=== PATIENT | male | born 1990 | race Two or more races ===

== ENCOUNTER 2024-03-17 20:53 | Emergency (ER) | payer OTHER, SELFPAY ==
[2024-03-17 21:00] VITALS: BP 135/74; PULSE 89; RESP 20; TEMP 36.7; O2SAT 99; BMI 25.1
--- NOTE | 2024-03-17 21:20 | ED.GENADULT ---
HPI - General Adult General Date Seen: 03/17/24 Chief complaint: Urogenital Problems, Male Stated complaint: burning when urinating Time Seen by Provider: 03/17/24 20:54 History of Present Illness HPI narrative: 34-year-old male presenting to the ER this evening at 9:00 p.m. with concern for dysuria. He began to have dysuria yesterday. He is not having any fever. No penile discharge. No rashes or lesions on his genitals. He is concerned because his fiancee had chlamydia 3 months ago in November. Actually she describes an illness with severe abdominal pain requiring hospitalization and tooth. It sounds like she may have PID from chlamydia. She Rue describes being treated with IV antibiotics in the hospital and then a week-long course of oral antibiotics after discharge. The patient's fiancee denies any other sexual contacts since that treatment for PID in November. The patient has no other sexual contacts. He he is otherwise generally healthy. No diabetes or immunosuppression. Related Data Home Medications ?Medication ?Instructions ?Recorded ?Confirmed No Known Home Medications 03/17/24 03/17/24 Allergies Allergy/AdvReac Type Severity Reaction Status Date / Time No Known Drug Allergies Allergy Verified 03/17/24 21:07 [facility] Medical History (Updated 03/17/24 @ 21:41 by José Silva MD) No significant past medical history Surgical History (Updated 03/17/24 @ 21:29 by Melvin Jang RN) No significant past surgical history Social History Smoking Status: Current every day smoker What tobacco products do you use: cigarettes Do you use any of these nicotine containing products: Vaping Products Second hand tobacco smoke exposure: Yes How often do you have a drink containing alcohol: never AUDIT-C Alcohol total score: 0 Non-prescribed substance use: denies use Exam Narrative: Exam Narrative: Constitutional: Appears well-developed and well-nourished. Active. Non-toxic appearing. HENT: Head: Atraumatic. No signs of injury. Nose: No nasal discharge. Mouth/Throat: Mucous membranes are moist. Pharynx is normal. Tonsils symmetric. Uvula midline. Airway patent. Eyes: Conjunctivae normal and EOM are normal. Pupils are equal, round, and reactive to light. Right eye exhibits no discharge. Left eye exhibits no discharge. No icterus. Neck: Normal range of motion. Neck supple. No adenopathy. No stridor. Cardiovascular: Normal rate and regular rhythm. Normal cap refill Pulmonary/Chest: Effort normal. No stridor. No respiratory distress. Abdominal: Soft. Bowel sounds are normal. No distension. No mass. There is no tenderness. There is no rebound and no guarding. : Normal uncircumcised penis. No vesicular lesions, ulcers, rashes. Glans of penis is normal. Urethra normal. Testicles and scrotum are normal. No inguinal adenopathy or masses. Musculoskeletal: Normal range of motion. No edema. No tenderness. No deformity. Neurological: Alert. Normal strength. No cranial nerve deficit or sensory deficit. Coordination normal. GCS eye subscore is 4. GCS verbal subscore is 5. GCS motor subscore is 6. Skin: Skin is warm. No rash noted. Const: Vital Signs, click to edit/add: Vital Signs - 24 hr 03/17/24 21:00 03/17/24 21:58 03/17/24 21:58 Temperature 98.0 F 98.0 F 98.0 F Pulse Rate [Right Pulse Oximeter] 89 81 81 Respiratory Rate 20 20 20 Blood Pressure [Ri ght Upper Arm] 135/74 128/74 128/74 Pulse Oximetry 99 99 Oxygen Delivery Me thod Room Air Room Air Course Vital Signs Vital signs: Initial Vital Signs Temperature 98.0 F 03/17/24 21:00 Temperature Source Temporal Artery Scan 03/17/24 21:00 Pulse Rate 89 03/17/24 21:00 Respiratory Rate 20 03/17/24 21:00 Blood Pressure 135/74 03/17/24 21:00 Blood Pressure Mean 94 03/17/24 21:00 Blood Pressure Position Sitting 03/17/24 21:00 Pulse Oximetry 99 03/17/24 21:00 Oxygen Delivery Method Room Air 03/17/24 21:00 Vital Signs Temperature 98.0 F 03/17/24 21:00 Pulse Rate 89 03/17/24 21:00 Respiratory Rate 20 03/17/24 21:00 Blood Pressure 135/74 03/17/24 21:00 Pulse Oximetry 99 03/17/24 21:00 Oxygen Delivery Method Room Air 03/17/24 21:00 Temperature 98.0 F 03/17/24 21:58 Pulse Rate 81 03/17/24 21:58 Respiratory Rate 20 03/17/24 21:58 Blood Pressure 128/74 03/17/24 21:58 Pulse Oximetry 99 03/17/24 21:58 Oxygen Delivery Method Room Air 03/17/24 21:58 Medical Decision Making MDM Narrative Medical decision making narrative: 34-year-old generally healthy male presenting to the ER today with dysuria that began yesterday. Differential here would include STD with urethra itis as well as typical urinary tract infection. Initial urinalysis is negative for UTI. His fiancee did recently have chlamydia but was treated with a course of antibiotics. Presentation is concerning for possible of chlamydia developing in the patient. We will elect to treat empirically with doxycycline 100 mg p.o. b.i.d. for 7 days. Exam does not really need vehicle any other evidence of such as chancre to suggest syphilis, vesicles to suggest herpes. No evidence for condyloma acuminata. Discussed the potential for gonorrhea with the patient and his fiancee. They have known exposure to that so will hold off on treatment. They have both been tested for HIV and are negative. Counseled that we will treat empirically for chlamydia, pending the results of his test. They should avoid sexual activity until the patient completes his course of antibiotics and his fiancee can be seen with her primary care provider to be tested and treated. Lab Data Labs: Lab Results 03/17/24 03/17/24 Range/Units 21:01 21:08 Urine Color Yellow (Yellow) Urine Appearance Clear (Clear) Urine pH 6.0 (5.0-8.5) Ur Specific [place] <= 1.005 (1.000-1.030) Urine Protein Negative (Negative) Urine Glucose (UA) Negative (Negative) Urine Ketones Negative (Negative) Urine Blood Negative (Negative) Urine Nitrite Negative (Negative) Urine Bilirubin Negative (Negative) Urine Urobilinogen 0.2 (0.2-1.0) Ur Leukocyte Esterase Negative (Negative) Urine RBC 0-2 (0-2) Urine WBC 0-2 (0-5) Ur Squamous Epith Cells None (None-Few) Urine Bacteria None (None) C.trachomatis Ampl DNA NOT DETECTED (No Detected) N.gonorrhoeae Ampl DNA NOT DETECTED (No Detected) Discharge Plan Discharge Clinical Impression: Urethritis Patient Disposition: Home, Self-Care Instructions: Chlamydia (ED), Sexually Transmitted Diseases (ED) Additional Instructions: As we discussed, your test for infections has not resulted yet. Right now we strongly suspect that you have chlamydia so we are going to treat you with an antibiotic (doxycycline) to treat you for possible chlamydia. If your urine swab shows an unusual infection or other problem, we will contact you by phone in 1-2 days. Please follow-up with your regular doctor for repeat test in 1-2 weeks. Avoid sexual activity for at least 7 days until you have completed your course of antibiotics and after your partner has been tested and treated. Prescriptions: No Action No Known Home Medications Stand Alone Forms: [employer] Info Instructions
[2024-03-17 21:27] LABS: Appearance Urine Clear (Clear); Bilirubin Urine Negative (Negative); Blood Urine Negative (Negative); Color Urine Yellow (Yellow); Glucose Urine Negative (Negative); Ketones Urine Negative (Negative); Leukocyte Esterase Urine Negative (Negative); Nitrite Urine Negative (Negative); Protein Urine Negative (Negative); Specific Gravity Urine <= 1.005 (1.000-1.030); Urobilinogen Urine 0.2 (0.2-1.0)
[2024-03-17 21:29] LABS: RBC Urine 0-2 (0-2); WBC Urine 0-2 (0-5)
[2024-03-17 21:58] VITALS: BP 128/74; PULSE 81; RESP 20; TEMP 36.7; O2SAT 99
[2024-03-17 22:53] LABS: Chlamydia DNA Amplified* NOT DETECTED (No Detected); GC DNA Amplified* NOT DETECTED (No Detected)
== END 2024-03-17 21:59 | disposition home or self-care (01) ==
LOC: ED 21:53
PROVIDERS: Family Medicine; Emergency Provider Emergency Medicine
DX: N34.2 Other urethritis (principal)
CPT/HCPCS: 81001; 87491; 87591; 99283

== ENCOUNTER 2024-05-28 21:25 | Emergency (ER) | payer OTHER, SELFPAY ==
--- OUTSIDE RECORDS SUMMARY | 2024-05-28 21:27 | XMS_ITS | Clinical Summary ---
Author Organization [place] Address Count [address] the [facility] [place] [address] Care Team Providers Care Pot Annealer Name Role Phone No Ref-Primary, Physician Primary Care Provider Allergies No known active allergies Medications No known medications Social History Tobacco Use Types Packs/Day Years Used Date Smoking Tobacco: Never Alcohol Use Standard Drinks/Week Comments Yes 0 (1 standard drink = 0.6 oz pur e alcohol) Sex and Gender Information Value Date Recorded Sex Assigned at Not on file Legal Sex Male 1:43 AM CDT Gender Identity Not on file Sexual Orientation Not on file Last Filed Vital Signs Vital Sign Reading Time Taken Comments Blood Pressure 123/70 09/21/2019 9:41 AM CDT Pulse 80 09/21/2019 9:41 AM CDT Temperature 36.8 C (98.2 F) 09/21/2019 9:41 AM CDT Respiratory Rate 16 09/21/2019 9:41 AM CDT Oxygen Saturation 96% 09/21/2019 9:41 AM CDT Inhaled Oxygen Concentration - - Weight 90.7 kg (200 lb) 09/21/2019 9:41 AM CDT Height 167.6 cm (5' 6) 09/21/2019 9:41 AM CDT Body Mass Index 32.28 09/21/2019 9:41 AM CDT Plan of Treatment Not on file Care Teams Pot Annealer Relationship Specialty Start Date End Date No Ref-Primary, Physician PCP - General 09/19/19
[2024-05-28 21:55] VITALS: BP 127/78; PULSE 63; RESP 16; TEMP 36.1; O2SAT 97
--- NOTE | 2024-05-28 23:02 | ED.GENADULT ---
HPI - General Adult General Time Seen by Provider: 23:03 Date Seen: 05/28/24 Chief complaint: Laceration/Wound Stated complaint: Tear in private Time Seen by Provider: 05/28/24 22:41 Source: patient Mode of arrival: ambulatory Limitations: no limitations History of Present Illness HPI narrative: Manuel is a 34 year old male with no past medical history presents emergency department via private care with a laceration. Patient states that he sustained a laceration to the bottom of his penile head a few weeks ago, seems to open up after intercourse and causes him pain. Patient states that he has unprotected sex daily, the last time he had bleeding from the area was yesterday. He says that it usually stops after some time. Denies any increased swelling but there is tenderness. Denies any penile lesions or penile discharge. Patient has applied nothing to the area. No other concerns. Related Data Home Medications ?Medication ?Instructions ?Recorded ?Confirmed No Known Home Medications 03/17/24 03/17/24 Allergies Allergy/AdvReac Type Severity Reaction Status Date / Time No Known Drug Allergies Allergy Verified 03/17/24 21:07 Review of Systems Status of ROS: Reports: 10 or more systems reviewed and unremarkable except as noted in History and below [facility] Medical History No significant past medical history Surgical History (Updated 03/17/24 @ 21:29 by Melvin Jang RN) No significant past surgical history Social History Smoking Status: Current every day smoker What tobacco products do you use: cigarettes Do you use any of these nicotine containing products: Vaping Products Second hand tobacco smoke exposure: Yes How often do you have a drink containing alcohol: never AUDIT-C Alcohol total score: 0 Non-prescribed substance use: denies use Exam Narrative: Exam Narrative: General: No obvious distress HEENT: Pupils equal round reactive to light the ocular muscles intact Lung: Clear Heart: Normal sinus rhythm Genitourinary: With retraction of the foreskin, there is a small abrasion laceration to the penile frenulum, no drainage or bleeding, no erythema or swelling, mild tenderness to palpation. Neuro: Alert awake and oriented x3 Const: Vital Signs, click to edit/add: Vital Signs - 24 hr 05/28/24 21:55 Temperature 97 F L Pulse Rate [Pulse Oximeter] 63 Respiratory Rate 16 Blood Pressure [Ri ght Upper Arm] 127/78 Pulse Oximetry 97 Oxygen Delivery Me thod Room Air Course Course ED Course: AIDET performed. Vitals are normal at this time, based on history and physical exam no laceration repair to be complete, seems irritation and reopening from intercourse. Discussed applying bacitracin or Vaseline, and allowing time to heal, discussed also use of lubricated condoms as a barrier to protect the area. He needs to follow up with primary care provider or Urology on outpatient basis. Reasons return were given Vital Signs Vital signs: Initial Vital Signs Temperature 97 F L 05/28/24 21:55 Temperature Source Temporal Artery Scan 05/28/24 21:55 Pulse Rate 63 05/28/24 21:55 Respiratory Rate 16 05/28/24 21:55 Blood Pressure 127/78 05/28/24 21:55 Blood Pressure Mean 94 05/28/24 21:55 Blood Pressure Position Sitting 05/28/24 21:55 Pulse Oximetry 97 05/28/24 21:55 Oxygen Delivery Method Room Air 05/28/24 21:55 Vital Signs Temperature 97 F L 05/28/24 21:55 Pulse Rate 63 05/28/24 21:55 Respiratory Rate 16 05/28/24 21:55 Blood Pressure 127/78 05/28/24 21:55 Pulse Oximetry 97 05/28/24 21:55 Oxygen Delivery Method Room Air 05/28/24 21:55 Temperature 97 F L 05/28/24 21:55 Pulse Rate 63 05/28/24 21:55 Respiratory Rate 16 05/28/24 21:55 Blood Pressure 127/78 05/28/24 21:55 Pulse Oximetry 97 05/28/24 21:55 Oxygen Delivery Method Room Air 05/28/24 21:55 Discharge Plan Discharge Clinical Impression: Penile laceration Patient Disposition: Home, Self-Care Condition: Improved Instructions: Laceration Without Closure (ED) Additional Instructions: To apply Bacitracin or Vaseline to the area for healing, to use lubricated condoms for barrier to protect from irritation or reopening. To give it some time, to heal, follow up with primary care provider as needed, return if worsening symptoms. Prescriptions: No Action No Known Home Medications Follow Up/Referrals: Provider,Not a Local [Primary Care Provider] - Stand Alone Forms: [employer] Info Instructions
--- OUTSIDE RECORDS SUMMARY | 2024-05-28 23:20 | XMS_ITS | Clinical Summary ---
Author Organization [place] Address [facility] [place] [address] Care Team Providers Care Healthcare Advisory Services Manager Name Role Phone No Ref-Primary, Physician Primary [...] of Treatment Not on file Care Teams Healthcare Advisory Services Manager Relationship Specialty Start Date End Date No Ref-Primary, Physician PCP - General 09/19/19
== END 2024-05-28 23:24 | disposition home or self-care (01) ==
PROVIDERS: Emergency Provider Student in an Organized Health Care Education/Training Program
DX: S31.21XA Laceration without foreign body of penis, initial encounter (principal)
CPT/HCPCS: 99283; 99284

== ENCOUNTER 2024-06-28 02:23 | Emergency (ER) | payer OTHER, SELFPAY ==
--- OUTSIDE RECORDS SUMMARY | 2024-06-28 02:25 | XMS_ITS | Clinical Summary ---
Author Organization [place] Address [facility] [place] [address] Care Team Providers Care Pipe Caulker Name Role Phone No Ref-Primary, Physician Primary [...] of Treatment Not on file Care Teams Pipe Caulker Relationship Specialty Start Date End Date No Ref-Primary, Physician PCP - General 09/19/19
--- OUTSIDE RECORDS SUMMARY | 2024-06-28 04:07 | XMS_ITS | Clinical Summary ---
Author Organization [place] Address [facility] [place] [address] Care Team Providers Care Dairy Truck Driver Name Role Phone No Ref-Primary, Physician Primary [...] of Treatment Not on file Care Teams Dairy Truck Driver Relationship Specialty Start Date End Date No Ref-Primary, Physician PCP - General 09/19/19
== END 2024-06-28 04:06 | disposition left against medical advice (07) ==
LOC: ED 04:05
DX: Z53.21 Procedure and treatment not carried out due to patient leaving prior to being seen by health care provider (principal)
CPT/HCPCS: 81001; 87491; 87591

== ENCOUNTER 2024-11-20 17:53 | Emergency (ER) | payer OTHER, SELFPAY ==
--- OUTSIDE RECORDS SUMMARY | 2024-11-20 17:55 | XMS_ITS | Clinical Summary ---
Author Organization [place] Address [address] [place] [id number] Care Team Providers Care Vocational Rehabilitation Administrator Name Role Phone No Ref-Primary, Physician Primary [...] of Treatment Not on file Care Teams Vocational Rehabilitation Administrator Relationship Specialty Start Date End Date No Ref-Primary, Physician PCP - General 09/19/19
[2024-11-20 17:56] VITALS: BP 128/84; PULSE 99; RESP 18; TEMP 36.9; O2SAT 97; BMI 23.5
--- NOTE | 2024-11-20 17:56 | ED.GENADULT ---
HPI - General Adult General Time Seen by Provider: 17:56 Date Seen: 11/20/24 Chief complaint: Urogenital Problems, Male Stated complaint: bumps on groin Time Seen by Provider: 11/20/24 17:55 Source: patient Mode of arrival: ambulatory Limitations: no limitations History of Present Illness HPI narrative: 34-year-old male who comes in complaining of bumps on his groin area. He noted these today. He says they are little itchy. Denies urethral discharge, pain with urination, testicular pain. Here with his fiancee who is currently . Related Data Home Medications ?Medication ?Instructions ?Recorded ?Confirmed No Known Home Medications 03/17/24 11/20/24 Allergies Allergy/AdvReac Type Severity Reaction Status Date / Time opiate AdvReac Mild Dizziness Uncoded 11/20/24 18:00 [facility] Medical History No significant past medical history Surgical History (Updated 03/17/24 @ 21:29 by Melvin Jang RN) No significant past surgical history Social History Smoking Status: Current every day smoker What tobacco products do you use: cigarettes Do you use any of these nicotine containing products: Vaping Products Second hand tobacco smoke exposure: Yes How often do you have a drink containing alcohol: never AUDIT-C Alcohol total score: 0 Non-prescribed substance use: denies use Exam Narrative: Exam Narrative: General: well nourished , NAD Head: Atraumatic and normocephalic ENT: External ears and external nose are normal Eyes: Conjunctiva clear, pupils are equal reactive, external ocular motions are intact Neck: Full spontaneous range of motion of the neck Lungs: No respiratory distress Musculoskeletal: No tenderness or deformity Neurologic: No gross focal neurologic deficits Skin: No rashes Psych: Mood and affect are appropriate : Uncircumcised, Isolated flesh-colored sub mm papules on the glans with central umbilication of a couple of these Const: Vital Signs, click to edit/add: Vital Signs - 24 hr 11/20/24 17:56 Temperature 98.5 F Pulse Rate [Right Pulse Oximeter] 99 Respiratory Rate 18 Blood Pressure [Ri ght Upper Arm] 128/84 Pulse Oximetry 97 Oxygen Delivery Me thod Room Air Course Course ED Course: Reviewed prior emergency department visit from March 2024 when patient was seen with urethritis, chlamydia and gonorrhea negative. Patient presents today with the since on the glans of the noted today, slightly itchy. On exam there are tiny umbilicated lesions on the glans, no urethral discharge, no testicular tenderness. Symptoms are most consistent with molluscum, also consider balanitis although no white discharge. Discussed benign nature of this, they should use condoms and stable for discharge. Vital Signs Vital signs: Initial Vital Signs Temperature 98.5 F 11/20/24 17:56 Temperature Source Temporal Artery Scan 11/20/24 17:56 Pulse Rate 99 11/20/24 17:56 Pulse Rhythm Regular 11/20/24 17:56 Pulse Strength 3+ Normal 11/20/24 17:56 Respiratory Rate 18 11/20/24 17:56 Blood Pressure 128/84 11/20/24 17:56 Blood Pressure Mean 98 11/20/24 17:56 Blood Pressure Position Sitting 11/20/24 17:56 Pulse Oximetry 97 11/20/24 17:56 Oxygen Delivery Method Room Air 11/20/24 17:56 Vital Signs Temperature 98.5 F 11/20/24 17:56 Pulse Rate 99 11/20/24 17:56 Respiratory Rate 18 11/20/24 17:56 Blood Pressure 128/84 11/20/24 17:56 Pulse Oximetry 97 11/20/24 17:56 Oxygen Delivery Method Room Air 11/20/24 17:56 Temperature 98.5 F 11/20/24 17:56 Pulse Rate 99 11/20/24 17:56 Respiratory Rate 18 11/20/24 17:56 Blood Pressure 128/84 11/20/24 17:56 Pulse Oximetry 97 11/20/24 17:56 Oxygen Delivery Method Room Air 11/20/24 17:56 Discharge Plan Discharge Clinical Impression: Molluscum contagiosum Patient Disposition: Home, Self-Care Condition: Stable Instructions: Molluscum Contagiosum (ED) Additional Instructions: Use condoms for intercourse Activity Level: Activity as Tolerated Discharge Diet: Regular Prescriptions: No Action No Known Home Medications Follow Up/Referrals: Provider,Not a Local [Primary Care Provider, Family Practice] Stand Alone Forms: [employer] Info Instructions
== END 2024-11-20 18:46 | disposition home or self-care (01) ==
LOC: ED 18:17
PROVIDERS: Emergency Provider Family Medicine
DX: B08.1 Molluscum contagiosum (principal)
CPT/HCPCS: 99282; 99283